=== PATIENT | female | born 2005 | race Caucasian/White ===

== ENCOUNTER 2024-02-16 08:55 | Outpatient (CLI) | payer BC, SELFPAY ==
[2024-02-16 12:53] LABS: Chlamydia DNA Amplified* NOT DETECTED (No Detected); GC DNA Amplified* NOT DETECTED (No Detected)
== END 2024-02-16 08:56 | disposition home or self-care (01) ==
LOC: NFLDREF 09:00
PROVIDERS: PCP Obstetrics & Gynecology; Visit Provider Obstetrics & Gynecology
DX: Z11.3 Encounter for screening for infections with a predominantly sexual mode of transmission (principal)
CPT/HCPCS: 87491; 87591

== ENCOUNTER 2025-09-08 12:30 | Outpatient (CLI) | payer BC, SELFPAY | END 2025-09-08 12:31 | disposition home or self-care (01) | LOC: NFLDUCREF 12:30 | DX: T81.49XA Infection following a procedure, other surgical site, initial encounter (principal) | CPT/HCPCS: 87070; 87186 ==